=== PATIENT | male | born 1970 | race African-American/Black ===

== ENCOUNTER 2016-07-26 23:50 | Emergency (ER) | payer SELFPAY ==
[2016-11-18] MEDS ORDERED: HABIT21 TOP (17:14)
[2016-11-18] MEDS ORDERED: ZIAC10 PO (17:15)
[2016-11-18] MEDS ORDERED: ATV.5 PO (17:15)
[2016-11-18] MEDS ORDERED: PROTONIX PO (17:15)
== END 2016-07-27 00:34 | disposition home or self-care (01) ==
LOC: ER 23:50
DX: G89.18 Other acute postprocedural pain (principal); M79.602 Pain in left arm; I10 Essential (primary) hypertension; F17.200 Nicotine dependence, unspecified, uncomplicated; Z98.890 Other specified postprocedural states
CPT/HCPCS: 99283

== ENCOUNTER 2016-11-10 16:16 | Emergency (ER) | payer SELFPAY ==
[2016-11-10 17:49] LABS: BASOPHILS 0.4 %; BASOPHILS ABSOLUTE 0.02 10/3/uL (0.0-0.16); EOSINOPHILS ABSOLUTE 0.17 10/3/uL (0.0-0.53); ER CBC TAT 0 Hrs 08 Mins; HEMATOCRIT 40.2 % (40.0-51.0); HEMOGLOBIN 13.5 g/dL (13.6-17.8); IMMATURE GRANULOCYTES 0.2 %; IMMATURE GRANULOCYTES ABSOLUTE 0.01 10/3/uL (0.0-0.11); LYMPHOCYTES 29.7 %; LYMPHOCYTES ABSOLUTE 1.67 10/3/uL (0.67-4.30); MEAN CORPUS HGB CONC 33.6 g/dL (32.0-36.0); MEAN CORPUSCULAR HEMOGLOB 27.9 pg (26.0-34.0); MEAN CORPUSCULAR VOLUME 83.1 fL (80-100); MEAN PLATELET VOLUME 11.6 fL (9.2-13.0); MONOCYTES 8.3 %; MONOCYTES ABSOLUTE 0.47 10/3/uL (0.21-1.20); NEUTROPHILS 58.4 %; NEUTROPHILS ABSOLUTE 3.29 10/3/uL (2.02-8.40); PLATELET COUNT 196 10/3/uL (150-400); RBC DISTRIBUTION WIDTH 14.8 % (12.0-16.0); RED CELL COUNT 4.84 10/6/uL (4.7-6.1); WHITE BLOOD CELLS 5.6 10/3/uL (4.5-10.5)
[2016-11-10 17:50] LABS: MANUAL DIFF NO %
[2016-11-10 18:03] LABS: A/G RATIO 0.8 (0.7-1.9); ALBUMIN 3.8 G/DL (3.5-5.0); ALKALINE PHOSPHATASE 95 U/L (45-117); CHLORIDE, SERUM 104 MMOL/L (96-112); CO2 (CARBON DIOXIDE) 25 MMOL/L (24-34); CREATININE 0.97 MG/DL (0.70-1.30); GFR AFRICAN AMERICAN 108 ML/MIN (>=60); GFR NON AFRICAN AMERICAN 93 ML/MIN (>=60); GLOBULIN 4.5 G/DL (2.5-4.1); GLUCOSE, SERUM 68 MG/DL (60-99); POTASSIUM, SERUM 3.6 MMOL/L (3.5-5.3); SGOT(AST) 73 U/L (5-40); SGPT(ALT) 73 U/L (5-65); SODIUM, SERUM 138 MMOL/L (135-148); TOTAL BILIRUBIN 1.1 MG/DL (0-1.2); TOTAL PROTEIN 8.3 G/DL (6.0-8.5); TROPONIN I <0.02 NG/ML (<0.05)
[2016-11-10 18:04] LABS: BUN (BLOOD UREA NITROGEN) 12 MG/DL (6-23)
[2016-11-10 18:12] LABS: ASCORBIC ACID (UR NOT ORDER) NEG (NEG); BILIRUBIN, URINE NEGATIVE (NEG); ER URINALYSIS TAT 0 Hrs 19 Mins; KETONE, URINE 80 MG/DL (NEG); LEUKOCYTE ESTERASE(NOT OR NEG (NEG); NITRITE (URINE) NEG (NEG); WBC (NOT ORDERED) (RFLEX) < 1 (0-5)
[2016-11-18] MEDS ORDERED: HABIT21 TOP (17:14)
[2016-11-18] MEDS ORDERED: ATV.5 PO (17:15)
[2016-11-18] MEDS ORDERED: PROTONIX PO (17:15)
[2016-11-18] MEDS ORDERED: ZIAC10 PO (17:15)
== END 2016-11-10 18:14 | disposition left against medical advice (07) ==
LOC: ER 16:16
PROVIDERS: Nurse Practitioner
DX: R10.10 Upper abdominal pain, unspecified (principal); I10 Essential (primary) hypertension
CPT/HCPCS: 80053; 81001; 83690; 84484; 85025; 93005; 99284; A9270-GY